=== PATIENT | male | born 1990 | race Caucasian/White ===

== ENCOUNTER 2018-04-26 10:11 | Emergency (ER) | payer OTHER ==
--- NOTE | 2018-04-26 11:58 | ER ---
Nurse's Notes [facility] Name: Jhonny Jimenez Age: 27 yrs Sex: Male : 1990 Arrival Date: 04/26/2018 Time: 10:14 Bed 19 Private MD: Diagnosis: Phlegmon of right gluteus erasmo Presentation: 04/26 10:23 Presenting complaint: Patient states: "My right butt cheek has been swollen since aj1 Friday." Denies drainage. Reports chills. Transition of care: patient was not received from another setting of care. Onset of symptoms was April 23, 2018. Risk Assessment: Do you want to hurt yourself or someone else? Patient reports no desire to harm self or others. Initial Sepsis Screen: Does the patient meet any 2 criteria? No. Patient's initial sepsis screen is negative. Does the patient have a suspected source of infection? No. Patient's initial sepsis screen is negative. Care prior to arrival: None. 10:23 Method Of Arrival: Ambulatory aj1 10:23 Acuity: ZACK 4 aj1 Triage Assessment: 10:26 General: Appears in no apparent distress. uncomfortable, Behavior is calm, cooperative, aj1 appropriate for age. Pain: Complains of pain in buttocks Pain currently is 8 out of 10 on a pain scale. Neuro: Level of Consciousness is awake, alert, obeys commands. Cardiovascular: Patient's skin is warm and dry. Respiratory: Airway is patent Respiratory effort is even, unlabored, Respiratory pattern is regular, symmetrical. Historical: - Allergies: 10:26 Bactrim; aj1 - Home Meds: 10:26 None [Active]; aj1 - PMHx: 10:26 Myocardial infarction; aj1 - PSHx: 10:26 None; aj1 - Immunization history:: Flu vaccine is not up to date. - Social history:: Smoking status: Patient uses tobacco products, 5 cigarettes per day. - Ebola Screening: : Patient denies travel to an Ebola-affected area in the 21 days before illness onset. Screenin:26 Abuse screen: Denies threats or abuse. Nutritional screening: No deficits noted. em Tuberculosis screening: No symptoms or risk factors identified. Fall Risk None identified. Assessment: 10:56 General: Appears in no apparent distress. uncomfortable, Behavior is calm, cooperative. em Pain: Complains of pain in right gluteus erasmo Pain currently is 8 out of 10 on a pain scale. Quality of pain is described as sharp. Neuro: Level of Consciousness is awake, alert, obeys commands, Oriented to person, place, time, situation. Cardiovascular: Capillary refill < 3 seconds Patient's skin is warm and dry. Respiratory: Airway is patent Respiratory effort is even, unlabored, Respiratory pattern is regular, symmetrical. GI: Abdomen is flat. : No signs and/or symptoms were reported regarding the genitourinary system. EENT: No signs and/or symptoms were reported regarding the EENT system. Derm: Skin is intact, Skin is pink, warm \\T\\ dry. Musculoskeletal: Range of motion: intact in all extremities. 11:00 Reassessment: The previous assessment is accurate, call light remains within reach. ss 12:00 Reassessment: Patient appears in no apparent distress at this time. Patient and/or em family updated on plan of care and expected duration. Pain level reassessed. Patient is alert, oriented x 3, equal unlabored respirations, skin warm/dry/pink. Vital Signs: 10:26 BP 145 / 84; Pulse 100; Resp 20; Temp 98.5; Pulse Ox 98% on R/A; Weight 104.33 kg (R); aj1 Height 6 ft. 4 in. (193.04 cm) (R); Pain 8/10; 11:45 BP 121 / 66; Pulse 77; Resp 18; Pulse Ox 99% on R/A; dh3 10:26 Body Mass Index 28.00 (104.33 kg, 193.04 cm) aj1 ED Course: 10:14 Patient arrived in ED. as 10:26 Triage completed. aj1 10:26 Arm band placed on Patient placed in an exam room. aj1 10:29 Emile Sims, LEIGHANN is PHCP. pm1 10:29 Dacia Hernandez MD is Attending Physician. pm1 11:19 Ultrasound completed. Patient tolerated well. Notified SENIOR ENVIRONMENTAL ENGINEER/PA emile. sg3 11:26 Francois Pelayo LVN is Primary Nurse. em 11:54 US Extrmty Nonvasular Limited In Process Unspecified. EDMS 12:28 Patient has correct armband on for positive identification. Placed in gown. Bed in low em position. Call light in reach. 12:28 No provider procedures requiring assistance completed. Patient did not have IV access em during this emergency room visit. Administered Medications: 12:44 Drug: TORadol 60 mg Route: IM; Site: left deltoid; em 12:46 Follow up: Response: Medication administered at discharge. em Outcome: 11:58 Discharge ordered by MD. pm1 12:49 Discharged to home ambulatory. em 12:49 Condition: good 12:49 Discharge instructions given to patient, Instructed on discharge instructions, follow up and referral plans. medication usage, Demonstrated understanding of instructions, follow-up care, medications, Prescriptions given X 2. 12:50 Patient left the ED. em Signatures: Dispatcher [employer] EDIndu Macedo RN RN aj1 Francois Pelayo, AUTOMATIC LATHE OPERATOR AUTOMATIC LATHE OPERATOR Julianna Schmidt Shelby, RN RN ss Emile Sims, SENIOR ENVIRONMENTAL ENGINEER SENIOR ENVIRONMENTAL ENGINEER pm1 Bisi Knutson 3 Tena Roque 3
--- NOTE | 2018-04-26 11:58 | EDPHYS ---
Physician Documentation [facility] Name: Jhonny Jimenez Age: 27 yrs Sex: Male : 1990 Arrival Date: 04/26/2018 Time: 10:14 Bed 19 Private MD: ED Physician Dacia Hernandez HPI: 04/26 10:46 This 27 yrs old Male presents to ER via Ambulatory with complaints of Swollen pm1 Right Buttock. 10:46 the patient presents with a swollen area of the right gluteus erasmo. Description: pm1 swollen. Onset: The symptoms/episode began/occurred 2 day(s) ago. Possible cause(s): Self injections of anabolic steroids to right gluteus. Patient recently changed from a liquid 250 mg dosage to 400 mg dosage that is thicker. Patient reports that he typically gets some swelling to his injection sites that usually resolve but this time the swelling has persisted. Denies fever. Reports some chills but he always gets some "test fever" from his steroid injections. He believes that the swelling is due to viscosity change. Associated signs and symptoms: Pertinent positives: swelling, Pertinent negatives: discharge, drainage, fever, headache. Modifying factors: the symptoms are alleviated by nothing, the symptoms are aggravated by touching. Severity of symptoms: in the emergency department the symptoms are actually worse. The patient has experienced similar episodes in the past, but today's symptoms are worse, Lasting longer and more painful. The patient has not recently seen a physician. Historical: - Allergies: 10:26 Bactrim; aj1 - Home Meds: 10:26 None [Active]; aj1 - PMHx: 10:26 Myocardial infarction; aj1 - PSHx: 10:26 None; aj1 - Immunization history:: Flu vaccine is not up to date. - Social history:: Smoking status: Patient uses tobacco products, 5 cigarettes per day. - Ebola Screening: : Patient denies travel to an Ebola-affected area in the 21 days before illness onset. ROS: 11:02 Eyes: Negative for injury, pain, redness, and discharge, ENT: Negative for injury, pm1 pain, and discharge, Neck: Negative for injury, pain, and swelling, Cardiovascular: Negative for chest pain, palpitations, and edema, Respiratory: Negative for shortness of breath, cough, wheezing, and pleuritic chest pain, Abdomen/GI: Negative for abdominal pain, nausea, vomiting, diarrhea, and constipation, Back: Negative for injury and pain, : Negative for injury, bleeding, discharge, and swelling, MS/Extremity: Negative for injury and deformity. 11:02 Skin: Negative for injury, rash, and discoloration, Neuro: Negative for headache, weakness, numbness, tingling, and seizure. 11:02 Constitutional: Positive for Chills with anabolic steroid injections, "test fever", Negative for body aches, fever. 11:02 MS/extremity: Positive for swelling, tenderness, of the right gluteus erasmo, Negative for decreased range of motion, erythema. Exam: 11:02 Constitutional: This is a well developed, well nourished patient who is awake, alert, pm1 and in no acute distress. Head/Face: Normocephalic, atraumatic. Chest/axilla: Normal chest wall appearance and motion. Nontender with no deformity. No lesions are appreciated. Cardiovascular: Regular rate and rhythm with a normal S1 and S2. No gallops, murmurs, or rubs. Normal PMI, no JVD. No pulse deficits. Respiratory: Lungs have equal breath sounds bilaterally, clear to auscultation and percussion. No rales, rhonchi or wheezes noted. No increased work of breathing, no retractions or nasal flaring. Abdomen/GI: Soft, non-tender, with normal bowel sounds. No distension or tympany. No guarding or rebound. No evidence of tenderness throughout. Back: No spinal tenderness. No costovertebral tenderness. Full range of motion. 11:02 MS/ Extremity: Pulses equal, no cyanosis. Neurovascular intact. Full, normal range of motion. 11:02 Skin: Appearance: normal except for affected area, swelling, noted on the right gluteus erasmo, 2 x 7 cm area , cellulitis, is not appreciated. 11:02 Neuro: Orientation: is normal, Motor: is normal, moves all fours, Sensation: is normal, no obvious gross deficits, Gait: is steady, at a normal pace, without difficulty. Vital Signs: 10:26 BP 145 / 84; Pulse 100; Resp 20; Temp 98.5; Pulse Ox 98% on R/A; Weight 104.33 kg (R); aj1 Height 6 ft. 4 in. (193.04 cm) (R); Pain 8/10; 11:45 BP 121 / 66; Pulse 77; Resp 18; Pulse Ox 99% on R/A; dh3 10:26 Body Mass Index 28.00 (104.33 kg, 193.04 cm) aj1 MDM: 10:31 Patient medically screened. pm1 11:09 Data reviewed: vital signs. Data interpreted: Pulse oximetry: on room air is 98 %. pm1 Interpretation: normal. 11:51 Counseling: I had a detailed discussion with the patient and/or guardian regarding: the pm1 historical points, exam findings, and any diagnostic results supporting the discharge/admit diagnosis, radiology results, the need for outpatient follow up, to return to the emergency department if symptoms worsen or persist or if there are any questions or concerns that arise at home. 04/26 10:44 Order name: US Jorge Tolliver Limited pm1 Administered Medications: 12:44 Drug: TORadol 60 mg Route: IM; Site: left deltoid; em 12:46 Follow up: Response: Medication administered at discharge. em Disposition: 04/26/18 11:58 Discharged to Home. Impression: Phlegmon of right gluteus erasmo. - Condition is Stable. - Discharge Instructions: Cellulitis. - Prescriptions for Doxycycline Hyclate 100 mg Oral Tablet - take 1 tablet by ORAL route every 12 hours; 20 tablet. Tylenol- Codeine #3 300-30 mg Oral Tablet - take 2 tablets by ORAL route every 6 hours As needed; 20 tablet. - Work release form, Medication Reconciliation Form, Thank You Letter, Antibiotic Education form. - Follow up: Emergency Department; When: As needed; Reason: Worsening of condition. Follow up: Private Physician; When: 2 - 3 days; Reason: Recheck today's complaints, Continuance of care, Re-evaluation by your physician. - Problem is new. - Symptoms have improved. Addendum: 04/27/2018 21:29 Co-signature as Attending Physician, Dacia Hernandez MD. m a2 Signatures: Dispatcher [employer] Indu Escalante RN RN aj1 Francois Pelayo, LINE WALKER LINE WALKER em Shahid Sims, IT TEACHER IT TEACHER pm1 Dacia Hernandez MD MD ma2 Corrections: (The following items were deleted from the chart) 04/26 12:50 11:58 04/26/2018 11:58 Discharged to Home. Impression: Phlegmon of right gluteus em erasmo. Condition is Stable. Forms are Medication Reconciliation Form, Thank You Letter, Antibiotic Education, Prescription Opioid Use. Follow up: Emergency Department; When: As needed; Reason: Worsening of condition. Follow up: Private Physician; When: 2 - 3 days; Reason: Recheck today's complaints, Continuance of care, Re-evaluation by your physician. Problem is new. Symptoms have improved. pm1
[2018-04-26] MEDS ORDERED: KETOROLAC 30 MG/ML INJ ONE (12:39)
--- NOTE | 2018-04-26 12:51 | RAD REPORT ---
EXAM DESCRIPTION: US - Extremity Nonvascular Limited - 04/26/2018 11:54 am CLINICAL HISTORY: Right buttock swelling COMPARISON: None FINDINGS: Diffuse edema is present within the subcutaneous tissues of the right buttocks. An abscess is not seen. IMPRESSION: Diffuse edema within the subcutaneous tissues of the right buttocks may indicate a cellu litis. A discrete abscess is not seen
== END 2018-04-26 12:50 | disposition home or self-care (01) ==
LOC: ER 10:11
DX: L02.31 Cutaneous abscess of buttock (principal); F17.210 Nicotine dependence, cigarettes, uncomplicated
CPT/HCPCS: 76882; 96372; 99283